=== PATIENT | male | born 1970 | race Hispanic/Latino ===

== ENCOUNTER 2023-12-14 17:32 | Emergency (ER) | payer OTHER ==
[2023-12-14] MEDS ORDERED: Ketorolac Tromethamine 30 MG (1 mL) VIAL ONE (17:52)
[2023-12-14] MEDS ORDERED: Sodium Chloride 0.9% 1,000 ML ONE (18:07)
[2023-12-14] MEDS ORDERED: Bacitracin Zinc Ointment 30 gm TUBE ONE (18:21)
[2023-12-14] MEDS ORDERED: HYDROcodone/Acetaminophen 10/325 mg Tablet ONE (18:26)
[2023-12-14] MEDS ORDERED: Boostrix 0.5 ML (Tdap) VIAL (>/=7 yrs of age) ONE (19:10)
== END 2023-12-14 19:49 | disposition home or self-care (01) ==
LOC: NAV ERS 17:32
DX: T21.22XA Burn of second degree of abdominal wall, initial encounter (principal); T22.20XA Burn of second degree of shoulder and upper limb, except wrist and hand, unspecified site, initial encounter; T26.41XA Burn of right eye and adnexa, part unspecified, initial encounter; T31.11 Burns involving 10-19% of body surface with 10-19% third degree burns; R03.0 Elevated blood-pressure reading, without diagnosis of hypertension; Z23 Encounter for immunization; X13.1XXA Other contact with steam and other hot vapors, initial encounter
CPT/HCPCS: 16020; 90471; 90715; 96374; J1885; J7050